=== PATIENT | male | born 1955 | race Caucasian/White ===

== ENCOUNTER 2017-05-10 15:19 | Emergency (ER) | payer OTHER ==
[~2017-05-10] VITALS: Ht 182.9 cm; Wt 99.8 kg
--- NOTE | 2017-05-10 15:23 | NUR ---
ARRIVAL PATIENT ARRIVED TO ED3 VIA W/C WITH FAMILY, PATIENT TO ED FOR EVALUATION, PATIENT STATES HE HAS A HISTORY OF SVT, WAS IN [place] WITH FAMILY FELT HIS HEART RATE INCREASE TO OVER 150, HEADED TO THE ED IN ROUTE STOPPED TO GET A BAG OF ICE, PLACED IT ON HIS BACK, ON ARRIVAL HEART RATE SINUS TACH ON THE MONITOR, DOCTOR EDUARDO NOTIFIED OF PATIENTS ARRIVAL.
--- NOTE | 2017-05-10 15:28 | PCM.EKG ---
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
--- NOTE | 2017-05-10 15:38 | NUR ---
EDUARDO DOCTOR EDUARDO TO ROOM TO SEE PATIENT.
[2017-05-10] MEDS ORDERED: TOPROL XL PO ONE (16:02)
[2017-05-10] MEDS ORDERED: TOPROL PO STA (16:07)
--- NOTE | 2017-05-10 16:27 | ER.PDOC ---
General Chief Complaint: Chest Pain-Cardiac Nature Stated Complaint: CHEST PAIN Time seen by MD: 16:22 Source: patient Exam Limitations: no limitations History of Present Illness Initial Comments Palpitations, per patient he had an episode of SVT at home. Quality: fast Associated Symptoms: denies symptoms Allergies: Coded Allergies: No Known Allergies (Unverified , 05/10/17) Past Medical History Medical History: asthma, cancer, cardiac problems Surgical History: other Social History Smoking: non-smoker Alcohol Use: none Drug Use: none Constitutional: no symptoms reported Respiratory: no symptoms reported Cardiovascular: see HPI Gastrointestinal: no symptoms reported Genitourinary: no symptoms reported Musculoskeletal: no symptoms reported All Other Systems: Reviewed and Negative Physical Exam General Appearance: No Apparent Distress, WD/WN HEENT: PERRL/EOMI, Normal ENT Inspection, TMs Normal, Pharynx Normal Neck: Non-Tender, Full Range of Motion, Supple, Normal Inspection Respiratory: chest non-tender, lungs clear, normal breath sounds, no respiratory distress, no accessory muscle use Cardiovascular: Normal Peripheral Pulses, Regular Rate, Rhythm, No Edema, No Gallop, No JVD, No Murmur, Tachycardia Gastrointestinal: Normal Bowel Sounds, No Organomegaly, No Pulsatile Mass, Non Tender, Soft Extremities: Normal Range of Motion, Non-Tender, Normal Inspection, No Pedal Edema, No Calf Tenderness, Normal Capillary Refill Neurologic/Psychiatric: telemetry registered nurse II-XII NML as Tested, No Motor/Sensory Deficits, Alert, Normal Mood/Affect, Oriented x 3 Results/Orders Results/Orders Administered Medications Medications (Trade) Dose Ordered Sig/María Route PRN Reason Start Time Stop Time Status Last Admin Dose Admin Metoprolol Succinate (Toprol) 50 mg DAILY STAT PO 05/10/17 16:07 05/10/17 16:09 DC 05/10/17 16:09 Progress Progress Patient refused labs, gave him a dose of Metoprolol EKG/XRAY/CT/US EKG Comments: Sinus tachycardia Departure Time of Disposition: 16:26 Disposition: 01 HOME, SELF-CARE Impression: Primary Impression: Palpitations Condition: Improved Referrals: PCP,UNKNOWN (PCP) PRIMARY CARE PROVIDER Additional Instructions: F/U with your PCP in 1-2 days Continue home medications Duration or Time Spent with Pa: 40 mins MITZI CLARK MD May 10, 2017 16:27
[2017-05-10 16:33] VITALS: BP 114/70
== END 2017-05-10 16:31 | disposition home or self-care (01) ==
LOC: ER 15:19
DX: R00.2 Palpitations (principal); J45.909 Unspecified asthma, uncomplicated; C80.1 Malignant (primary) neoplasm, unspecified
CPT/HCPCS: 93005; 99283